=== PATIENT | female | born 1985 ===

== ENCOUNTER 2022-01-07 07:28 | Day surgery (SDC) | payer OTHER ==
[2022-01-07] VITALS (11 sets, daily range): BP systolic 79–121; BP diastolic 40–78
[~2022-01-07] VITALS: Ht 154.9 cm; Wt 68.0 kg
--- NOTE | 2022-01-07 07:50 | ED General ---
General Stated Complaint: VAGINAL BLEEDING History of Present Illness Date Seen by Provider: Jan 07, 2022 Time Seen by Provider: 07:40 Initial Comments Patient is a 36-year-old female who presents to the emergency room with a chief complaint of heavy vaginal bleeding over the course of the last few days. She had a miscarriage about 3 months ago, that was her first . She states she has never quite stopped bleeding. The bleeding has waxed and waned but has never been quite as severe as the last couple of days. She went to [facility] clinic yesterday and did have some ibuprofen. She was set up for an outpatient [facility] appointment for January 14. Currently rates her cramping at about a "4". No burning with urination or increased urinary frequency. She has not been taking anything onig-sjn-tiwhtji for the pain or bleeding. No allergies to medications. She takes no daily medications. Has had no prior surgeries. She does feel quite lightheaded, weak and dizzy this morning. Patient reports that she did not have repeat blood work or an ultrasound done after her miscarriage Use of Video Heat Seal Operator to facilitate HPI and exam Timing/Duration: Other (3 months) Severity: Moderate Associated Systoms: Nausea/Vomiting, Weakness Allergies and Home Medications Allergies Coded Allergies: No Known Drug Allergies (Unverified , 01/07/22) Patient Home Medication List Home Medication List Reviewed: Yes No Active Prescriptions or Reported Meds Review of Systems Review of Systems Constitutional: see HPI EENTM: no symptoms reported Respiratory: no symptoms reported Cardiovascular: no symptoms reported Gastrointestinal: abdominal pain Genitourinary: other (vaginal bleeding) Musculoskeletal: no symptoms reported Skin: no symptoms reported Psychiatric/Neurological: Other (light headed dizzy) All Other Systems Reviewed Negative Unless Noted: Yes Physical Exam Vital Signs Vital Signs - First Documented 01/07/22 07:38 Temp 36.0 Pulse 83 Resp 16 B/P (MAP) 116/76 (89) Pulse Ox 100 O2 Delivery Room Air Capillary Refill : Height, Weight, BMI Height: '" Weight: lbs. oz. kg; BMI Method: General Appearance: No Apparent Distress, WD/WN Eyes: Bilateral Eye Conjunctivae Pale HEENT: PERRL/EOMI Neck: Normal Inspection Respiratory: Lungs Clear, Normal Breath Sounds, No Accessory Muscle Use, No Respiratory Distress Cardiovascular: Regular Rate, Rhythm (tachy 96), Normal Peripheral Pulses Gastrointestinal: Soft, Tenderness Extremity: Normal Capillary Refill, Normal Inspection, Normal Range of Motion, Non Tender, No Calf Tenderness Neurologic/Psychiatric: Alert, Oriented x3, No Motor/Sensory Deficits, Normal Mood/Affect, handcrew foreman II-XII Norm as Tested Progress/Results/Core Measures Suspected Sepsis SIRS Temperature: Pulse: Respiratory Rate: Laboratory Tests 01/07/22 07:57: White Blood Count 15.6H Blood Pressure / Mean: Laboratory Tests 01/07/22 07:57: Creatinine 0.74, Platelet Count 363 Results/Orders Lab Results Laboratory Tests Test 01/07/22 07:57 Range/Units White Blood Count 15.6 H 4.3-11.0 10^3/uL Red Blood Count 3.54 L 3.80-5.11 10^6/uL Hemoglobin 10.5 L 11.5-16.0 g/dL Hematocrit 32 L 35-52 % Mean Corpuscular Volume 91 80-99 fL Mean Corpuscular Hemoglobin 30 25-34 pg Mean Corpuscular Hemoglobin Concent 33 32-36 g/dL Red Cell Distribution Width 12.6 10.0-14.5 % Platelet Count 363 130-400 10^3/uL Mean Platelet Volume 9.3 9.0-12.2 fL Immature Granulocyte % (Auto) 1 % Neutrophils (%) (Auto) 71 42-75 % Lymphocytes (%) (Auto) 21 12-44 % Monocytes (%) (Auto) 5 0-12 % Eosinophils (%) (Auto) 2 0-10 % Basophils (%) (Auto) 0 0-10 % Neutrophils # (Auto) 11.1 H 1.8-7.8 10^3/uL Lymphocytes # (Auto) 3.3 1.0-4.0 10^3/uL Monocytes # (Auto) 0.8 0.0-1.0 10^3/uL Eosinophils # (Auto) 0.2 0.0-0.3 10^3/uL Basophils # (Auto) 0.0 0.0-0.1 10^3/uL Immature Granulocyte # (Auto) 0.1 0.0-0.1 10^3/uL Neutrophils % (Manual) 72 % Lymphocytes % (Manual) 23 % Monocytes % (Manual) 5 % Clumped Platelets OCCASIONAL Sodium Level 135 135-145 MMOL/L Potassium Level 4.6 3.6-5.0 MMOL/L Chloride Level 106 98-107 MMOL/L Carbon Dioxide Level 20 L 21-32 MMOL/L Anion Gap 9 5-14 MMOL/L Blood Urea Nitrogen 12 7-18 MG/DL Creatinine 0.74 0.60-1.30 MG/DL Estimat Glomerular Filtration Rate 107 BUN/Creatinine Ratio 16 Glucose Level 121 H 70-105 MG/DL Calcium Level 8.7 8.5-10.1 MG/DL Serum Test, Qualitative NEGATIVE NEGATIVE My Orders Orders - LENNY OBREGON MD Ed Iv/Invasive Line Start (01/07/22 07:54) Cbc With Automated Diff (01/07/22 07:54) Basic Metabolic Panel (01/07/22 07:54) Abo Rh Type (01/07/22 07:54) Hcg,Qualitative Serum (01/07/22 07:54) Ns Iv 1000 Ml (Sodium Chloride 0.9%) (01/07/22 08:00) Ondansetron Injection (Zofran Injectio (01/07/22 08:00) Manual Differential (01/07/22 07:57) Us Non Ob Pelvis Comp/Transvag (01/07/22 08:33) Ketorolac Injection (Toradol Injection) (01/07/22 08:45) Medications Given in ED Vital Signs/I&O 01/07/22 01/07/22 07:38 13:45 Temp 36.0 Pulse 83 79 Resp 16 16 B/P (MAP) 116/76 (89) 108/72 Pulse Ox 100 100 O2 Delivery Room Air Room Air Capillary Refill : Progress Note #1: Time: 11:23 Progress Note Discussed with Dr Jaimes. Would like to know what the patient wants to do. Progress Note #2: Time: 12:41 Progress Note I spoke with the patient with the use of the video head still operator, she states that her pain is better although she still does have "a little" pain., she did receive some Toradol. She would like to stay and have a D&C. Vital signs remained stable. Exam shows mild tenderness in the suprapubic region. SHe does state the bleeding is "bright red". % pads soaked this morning, SHe had just put on a new one. HGB stable at 10.5. Progress Note #3: Time: 12:[address] Jaimes in the ED to see the patient Diagnostic Imaging Comments [facility] [place], [place] NAME: [facility] REC#: [id number] PT STATUS: REG ER : 1985 PHYSICIAN: LENYN OBREGON MD ADMIT DATE: 01/07/22/ER Draft Date of Exam:01/07/22 US NON OB PELVIS COMP/TRANSVAG PROCEDURE: US Non-ob pelvis comp/trans. TECHNIQUE: Multiple realtime grayscale images were obtained of the pelvis in various projections endovaginally. Transabdominal imaging was also performed. INDICATION: Pain and heavy bleeding, patient is three month post spontaneous . A hypervascular heterogeneous soft tissue like structure along the endocervical canal and lower uterine segment measures 4.5 x 3.5 x 4.4 cm. Vascularized retained products of conception could not be excluded given the history. The mid to distal uterine endometrium appeared normal. No endometrial free fluid. The right ovary contains a 3.7 cm long axis cyst, the left ovary normal. There is no adnexal torsion. IMPRESSION: Central lower uterine segment and cervical heterogeneous Hypervascularized mass effect measured maximal 4.5 x 4.4 cm and is suspicious for an area of vascularized retained products. This patient has a simple appearing right ovarian cyst with no pelvic free fluid or adnexal torsion. Nurse was notified of these suspicious findings prior to this dictation. Dictated on workstation # [id number] Dict: 01/07/2250 Trans: 01/07/[address] [facility] [id number] Interpreted by: EDER DOW Electronically signed by: Departure Communication (Admissions) Time/Spoke to Admitting Phy: 11:[address] Jaimes Impression Primary Impression: Retained products of conception Disposition: ADMITTED INPATIENT Condition: Stable Admissions Decision to Admit Reason: Admit from ER (General) Decision to Admit/Date: Jan 11, 2022 Time/Decision to Admit Time: 11:30 Departure-Patient Inst. Referrals: NO,LOCAL PHYSICIAN (PCP/Family) Primary Care Physician Scripts No Active Prescriptions or Reported Meds LENNY OBREGON MD Jan 07, 2022 07:50
[2022-01-07] MEDS ORDERED: ONDANSETRON 4 MG/2 ML (SDV) Z0FRAN IVP ONE (08:00)
[2022-01-07] MEDS ORDERED: NS IV 1000 ML 1,000 ML IV SCH (08:00)
[2022-01-07 08:04] LABS: BASOPHILS % (AUTO) 0 % (0-10); EOSINOPHILS # (AUTO) 0.2 10^3/uL (0.0-0.3); EOSINOPHILS % (AUTO) 2 % (0-10); HEMATOCRIT 32 % (35-52); HEMOGLOBIN 10.5 g/dL (11.5-16.0); LYMPHOCYTES # (AUTO) 3.3 10^3/uL (1.0-4.0); LYMPHOCYTES % (AUTO) 21 % (12-44); MEAN CORPUSCULAR HEMOGLOBIN 30 pg (25-34); MEAN CORPUSCULAR HGB CONC 33 g/dL (32-36); MEAN CORPUSCULAR VOLUME 91 fL (80-99); MEAN PLATELET VOLUME 9.3 fL (9.0-12.2); MONOCYTES # (AUTO) 0.8 10^3/uL (0.0-1.0); MONOCYTES % (AUTO) 5 % (0-12); NEUTROPHILS # (AUTO) 11.1 10^3/uL (1.8-7.8); NEUTROPHILS % (AUTO) 71 % (42-75); PLATELET COUNT 363 10^3/uL (130-400); WHITE BLOOD COUNT 15.6 10^3/uL (4.3-11.0)
[2022-01-07 08:12] LABS: POTASSIUM 4.6 MMOL/L (3.6-5.0)
[2022-01-07 08:13] LABS: CALCIUM 8.7 MG/DL (8.5-10.1)
[2022-01-07 08:17] LABS: CREATININE SERUM 0.74 MG/DL (0.60-1.30)
[2022-01-07 08:27] LABS: LYMPHOCYTES % (MANUAL) 23 %; MONOCYTES % (MANUAL) 5 %; NEUTROPHILS % (MANUAL) 72 %; PLATELET CLUMPS OCCASIONAL
[2022-01-07] MEDS ORDERED: KETOROLAC 30 MG/ML VIAL IVP ONE ×3 (08:45→13:45)
--- NOTE | 2022-01-07 09:58 | Diagnostic Imaging Report ---
PROCEDURE: US Non-ob pelvis comp/trans. TECHNIQUE: Multiple realtime grayscale images were obtained of the pelvis in various projections endovaginally. Transabdominal imaging was also performed. INDICATION: Pain and heavy bleeding, patient is three month post spontaneous . A hypervascular heterogeneous soft tissue like structure along the endocervical canal and lower uterine segment measures 4.5 x 3.5 x 4.4 cm. Vascularized retained products of conception could not be excluded given the history. The mid to distal uterine endometrium appeared normal. No endometrial free fluid. The right ovary contains a 3.7 cm long axis cyst, the left ovary normal. There is no adnexal torsion. IMPRESSION: Central lower uterine segment and cervical heterogeneous Hypervascularized mass effect measured maximal 4.5 x 4.4 cm and is suspicious for an area of vascularized retained products. This patient has a simple appearing right ovarian cyst with no pelvic free fluid or adnexal torsion. Nurse was notified of these suspicious findings prior to this dictation. Dictated by: Dictated on workstation # [id number]
--- NOTE | 2022-01-07 13:34 | History & Physical ---
History and Physical Date Seen by Provider: Jan 07, 2022 Time Seen by Provider: 13:30 This patient is a 36-year-old female 3 para 2 1 who presents to the emergency department with heavy bleeding and history of a nonviable in August and September. She had been referred for follow-up to Dr. Mena but she never did follow-up apparently did not return to [facility] where she had her primary care. She presented with heavy bleeding and abdominal pain. Ultrasound shows 4 to 6 cm of residual tissue suspicious for retained products of conception. Through an welder experimental I have interviewed the patient and discussed her history her presentation and treatment options being observation versus D&C she did want to proceed with a D&C so she will be admitted as an outpatient for emergency D&C Patient has no bowel or bladder complaints. She has no other complaints. She reports that she has been bleeding off and on since August but for the last 2 days been very heavy large proximal clots and heavy painful cramps Allergies are none Medications are None Past medical history is negative Patient is not a smoker does not do any drugs Family history is noncontributory HEENT exam is normal Neck is supple no lymphadenopathy no thyromegaly Abdomen is gravid soft nontender nondistended Extremities show no clubbing or cyanosis. There is no Homans' sign. Pelvic exam is pending and will be performed under anesthesia in the operating room Lab work is as follows Laboratory Tests Test 01/07/22 07:57 Range/Units White Blood Count 15.6 H 4.3-11.0 10^3/uL Red Blood Count 3.54 L 3.80-5.11 10^6/uL Hemoglobin 10.5 L 11.5-16.0 g/dL Hematocrit 32 L 35-52 % Mean Corpuscular Volume 91 80-99 fL Mean Corpuscular Hemoglobin 30 25-34 pg Mean Corpuscular Hemoglobin Concent 33 32-36 g/dL Red Cell Distribution Width 12.6 10.0-14.5 % Platelet Count 363 130-400 10^3/uL Mean Platelet Volume 9.3 9.0-12.2 fL Immature Granulocyte % (Auto) 1 % Neutrophils (%) (Auto) 71 42-75 % Lymphocytes (%) (Auto) 21 12-44 % Monocytes (%) (Auto) 5 0-12 % Eosinophils (%) (Auto) 2 0-10 % Basophils (%) (Auto) 0 0-10 % Neutrophils # (Auto) 11.1 H 1.8-7.8 10^3/uL Lymphocytes # (Auto) 3.3 1.0-4.0 10^3/uL Monocytes # (Auto) 0.8 0.0-1.0 10^3/uL Eosinophils # (Auto) 0.2 0.0-0.3 10^3/uL Basophils # (Auto) 0.0 0.0-0.1 10^3/uL Immature Granulocyte # (Auto) 0.1 0.0-0.1 10^3/uL Neutrophils % (Manual) 72 % Lymphocytes % (Manual) 23 % Monocytes % (Manual) 5 % Clumped Platelets OCCASIONAL Sodium Level 135 135-145 MMOL/L Potassium Level 4.6 3.6-5.0 MMOL/L Chloride Level 106 98-107 MMOL/L Carbon Dioxide Level 20 L 21-32 MMOL/L Anion Gap 9 5-14 MMOL/L Blood Urea Nitrogen 12 7-18 MG/DL Creatinine 0.74 0.60-1.30 MG/DL Estimat Glomerular Filtration Rate 107 BUN/Creatinine Ratio 16 Glucose Level 121 H 70-105 MG/DL Calcium Level 8.7 8.5-10.1 MG/DL Serum Test, Qualitative NEGATIVE NEGATIVE Ultrasound report for Dr. Tamez in the ED showed a complex mass with blood flow contained in the uterus. She does have a negative test. Assessment and plan Nonviable as recent as AugustIn September of this year. Apparently she has had no follow-up in regard to the nonviable twin that was diagnosed on ultrasound at that time. She has her care through [facility] and apparently had no follow-up there. She did not follow-up with Dr. Mena as instructed previously. Patient is in the emergency department now bleeding heavily we will proceed with D&C that has been fully discussed with the patient through the video welder experimental. All her questions were answered and follow-up instructions were given Menorrhagia/incomplete AB Allergies and Home Medications Allergies Coded Allergies: No Known Drug Allergies (Unverified , 01/07/22) Patient Home Medication List Home Medication List Reviewed: Yes MIKE PEDERSEN MD Jan 07, 2022 13:34
--- NOTE | 2022-01-07 13:36 | Discharge Inst-Surgical ---
Discharge Inst-Surgical Depart Medication/Instructions New, Converted or Re-Newed RX: Other Consults/Follow Up Orders & Referrals Follow Up Appt: Call to make follow up appt. for patient in 2 weeks With your primary care provider at [facility] Return to the emergency department for heavy bleeding temperature of 101 severe pain Activity: Rest for 24 hours, than as tolerated. May use [id number] Motrin or Aleve for cramps Diet: As tolerated shower or tub bathe as desired. No driving for 24 hours, no alcoholic beverages for 24 hours, and nothing per vagina (no tampons, douching, or intercoarse) for 2 weeks. Patient to return to the clinic as soon as possible for: Temperature greater than 101F, Severe Pain, Foul discharge from incision or vagina, Excessive Bleeding (more than a period). Activity Activity as Tolerated: No Diet Discharge Diet: No Restrictions MIKE PEDERSEN MD Jan 07, 2022 13:36
[2022-01-07] MEDS ORDERED: ONDANSETRON 4 MG/2 ML (SDV) Z0FRAN IVP PRN ×3 (13:45→14:30)
[2022-01-07] MEDS ORDERED: MEPERIDINE (DEMEROL) INJ 100 MG/ML IM ONE ×2 (13:45)
[2022-01-07] MEDS ORDERED: D5 LR IV SOLUTION 1,000 ML IV SCH ×2 (13:45→14:00)
[2022-01-07] MEDS ORDERED: ONDANSETRON 4 MG/2 ML (SDV) Z0FRAN ONE (13:48)
[2022-01-07] MEDS ORDERED: proPOfol 200 MG/20 ML (DIPRIVAN) VIAL IV ONE (13:48)
[2022-01-07] MEDS ORDERED: LIDOCAINE PF 2% 5 ML (XYLOCAINE) VIAL ONE (13:48)
[2022-01-07] MEDS ORDERED: SEVOFLURANE (ULTANE) 15 ML INHAL SOLN ONE ×2 (13:48→14:10)
[2022-01-07] MEDS ORDERED: MIDAZOLAM 2 MG/2 ML (VERSED) VIAL ONE (13:48)
[2022-01-07] MEDS ORDERED: fentaNYL INJ 100 MCG/2 ML AMP ONE (13:48)
[2022-01-07] MEDS ORDERED: ceFAZolin INJECTION 1,000 MG ONE (14:10)
[2022-01-07] MEDS ORDERED: ceFAZolin INJECTION 1,000 MG VIAL IV ONE (14:15)
[2022-01-07] MEDS ORDERED: LACTATED RINGERS 1,000 ML IV PRN (14:15)
--- NOTE | 2022-01-07 14:27 | Anesthesia-General Post-Op ---
General Patient Condition Mental Status/LOC: Same as Preop Cardiovascular: Satisfactory Nausea/Vomiting: Absent Respiratory: Satisfactory Pain: Controlled Complications: Absent Post Op Complications Complications None Follow Up Care/Instructions Patient Instructions None needed. Anesthesia/Patient Condition Patient Condition Patient is doing well, no complaints, stable vital signs, no apparent adverse anesthesia problems. No complications reported per nursing. CLAUDIO FARAH CRNA Jan 07, 2022 14:27
[2022-01-07] MEDS ORDERED: MEPERIDINE (DEMEROL) INJ 50 MG/ML IVP ONE (14:30)
[2022-01-07] MEDS ORDERED: fentaNYL INJ 100 MCG/2 ML AMP IVP ONE (14:30)
[2022-01-07] MEDS ORDERED: morphine INJ 10 MG/ML 1ML (SYR OR VIAL) IVP ONE (14:30)
[2022-01-07] MEDS ORDERED: KETOROLAC 30 MG/ML VIAL ONE (15:07)
--- NOTE | 2022-01-08 01:45 | OPERATIVE REPORT ---
DATE OF SERVICE: 01/07/2022 PREOPERATIVE DIAGNOSES: Menometrorrhagia and incomplete spontaneous miscarriage. POSTOPERATIVE DIAGNOSES: Menometrorrhagia and incomplete spontaneous miscarriage with pathology pending. PROCEDURE: D and C with suction. DESCRIPTION OF PROCEDURE: With the patient in the supine position, under satisfactory general anesthesia, she was repositioned in the dorsal lithotomy position in the Chalo stirrups and then prepped and draped in the usual fashion for vaginal surgery. The urinary bladder was drained with a straight catheter. Weighted speculum was placed in the posterior fornix of the vagina, cervix exposed and grasped anteriorly with single tooth tenaculum. Uterus was sounded to 14 cm with a uterine sound. The cervix was then serially dilated to a #21 Hegar dilator. A #11 curved suction curette was then introduced in the uterine cavity and a large amount of blood clot and debris was evacuated. The endometrial cavity was then sharply curettaged in all 4 quadrants to a good uterine cry. This curved suction curette was reintroduced and all blood clot and debris evacuated from the uterus. Tissue was sent to pathology as uterine contents. The tenaculum was removed. There was minimal bleeding at the cervical os. There was a little bit of bleeding from the tenaculum puncture sites. This was touched with silver nitrate to affect hemostasis. Then, with hemostasis assured, sponge and needle counts were correct. Blood loss between 100 and 200 mL. The patient was uneventfully awakened from her general anesthesia and transferred to the recovery room in stable condition with plans for discharge home PAR. Job ID: [id number] DocumentID: [id number] Dictated Date: 01/07/2022 14:46:39 Production Machine Operator Date: 01/08/2022 01:44:00 Dictated By: MIKE PEDERSEN MD
== END 2022-01-07 16:40 | disposition home or self-care (01) ==
LOC: ER 07:33 → SDC 13:54
PROVIDERS: ATTEND Obstetrics & Gynecology
DX: O03.4 Incomplete spontaneous abortion without complication (principal)
CPT/HCPCS: 36415; 76830; 76856; 80048; 84703; 85007; 85027; 86900; 86901

== ENCOUNTER 2022-12-22 13:55 | Observation (INO) | payer OTHER ==
[2022-12-22] VITALS (14 sets, daily range): BP systolic 80–138; BP diastolic 42–76
[~2022-12-22] VITALS: Ht 150 cm; Wt 73.4 kg
[2022-12-22] MEDS ORDERED: NS IV 1000 ML 1,000 ML IV STA (14:16)
[2022-12-22 14:26] LABS: BASOPHILS % (AUTO) 0 % (0-10); EOSINOPHILS # (AUTO) 0.3 10^3/uL (0.0-0.3); EOSINOPHILS % (AUTO) 3 % (0-10); HEMATOCRIT 30 % (35-52); HEMOGLOBIN 9.7 g/dL (11.5-16.0); LYMPHOCYTES # (AUTO) 3.6 10^3/uL (1.0-4.0); LYMPHOCYTES % (AUTO) 33 % (12-44); MEAN CORPUSCULAR HEMOGLOBIN 31 pg (25-34); MEAN CORPUSCULAR HGB CONC 33 g/dL (32-36); MEAN CORPUSCULAR VOLUME 96 fL (80-99); MEAN PLATELET VOLUME 9.6 fL (9.0-12.2); MONOCYTES # (AUTO) 0.7 10^3/uL (0.0-1.0); MONOCYTES % (AUTO) 6 % (0-12); NEUTROPHILS # (AUTO) 6.2 10^3/uL (1.8-7.8); NEUTROPHILS % (AUTO) 57 % (42-75); PLATELET COUNT 339 10^3/uL (130-400); WHITE BLOOD COUNT 10.9 10^3/uL (4.3-11.0)
--- NOTE | 2022-12-22 14:26 | ED GU-Female ---
General Chief Complaint: - Reproductive Stated Complaint: VAG BLEEDING Nursing Triage Note: PT ARRIVED POV FROM [facility] WITH CC OF ABNORMAL VAGINAL BLEEDING, INCREASE IN WEAKNESS, AND LOWER ABD PAIN AND SPINAL PAIN. PT STATES THAT BLEEDING STARTED ON Dec. Source: patient Exam Limitations: no limitations History of Present Illness Date Seen by Provider: Dec 22, 2022 Time Seen by Provider: 14:24 Initial Comments Patient is a 37-year-old female who presents to ED for abnormal vaginal bleeding. Patient was sent over from [facility] concerning for miscarriage with severe anemia. Patient started having lower abdominal cramping and low back pain with heavy vaginal bleeding on the . She states she is going through a pad every 15 minutes. Patient reports nausea without any vomiting or diarrhea. She is G4, P2. Last menstrual cycle November 13. She was found to have an elevated beta quant level. She had a ultrasound which showed concern for gestational sac. She is not on any type of blood thinner use. She does report frequent urination without any vaginal discharge. She reports chills fatigue without any known fever. She denies chest pain, shortness of breath, cough, headache, dizziness. speaking robotype operator was used. Allergies and Home Medications Allergies Coded Allergies: No Known Drug Allergies (Unverified , 01/07/22) Patient Home Medication List Home Medication List Reviewed: Yes No Active Prescriptions or Reported Meds Review of Systems Review of Systems Constitutional: No chills, No diaphoresis, No malaise, No weakness EENTM: No ear pain, No blurred vision, No double vision Respiratory: No cough, No dyspnea on exertion Cardiovascular: No chest pain Gastrointestinal: abdominal pain; No diarrhea; nausea; No vomiting Genitourinary: denies see HPI, denies burning, denies discharge; frequency, pain Musculoskeletal: back pain; No joint pain Skin: No change in color, No change in hair/nails All Other Systemes Reviewed Negative Unless Noted: Yes Past Vagljsy-Zugvgk-Uuushc Hx Patient Social History Tobacco Use?: No Substance use?: No Alcohol Use?: No Past Medical History Currently Using CPAP: No Currently Using BIPAP: No Physical Exam Vital Signs Vital Signs - First Documented 12/22/22 14:00 Temp 37.2 Pulse 106 B/P (MAP) 144/78 (100) Pulse Ox 100 O2 Delivery Room Air Capillary Refill : Height, Weight, BMI Height: '" Weight: lbs. oz. kg; 32.00 BMI Method: General Appearance: WD/WN, no apparent distress HEENT: PERRL/EOMI, normal ENT inspection, TMs normal, pharynx normal Neck: non-tender, full range of motion, supple Cardiovascular: regular rate, rhythm, no edema, no gallop, no JVD Respiratory: chest non-tender, lungs clear, normal breath sounds, no respiratory distress Gastrointestinal: normal bowel sounds, non tender, soft, no organomegaly Back: normal inspection, no CVA tenderness Extremities: normal range of motion, non-tender, normal inspection, no pedal edema Neurologic/Psychiatric: electrotype caster II-XII nml as tested, alert Skin: normal color, warm/dry Progress/Results/Core Measures Suspected Sepsis SIRS Temperature: Pulse: 106 Respiratory Rate: Laboratory Tests 12/22/22 14:20: White Blood Count 10.9 Blood Pressure 144 /78 Mean: 100 Laboratory Tests 12/22/22 14:20: Creatinine 0.69, INR Comment 1.0, Platelet Count 339, Total Bilirubin 0.1 Results/Orders Lab Results Laboratory Tests Test 12/22/22 14:20 12/22/22 15:29 Range/Units White Blood Count 10.9 4.3-11.0 10^3/uL Red Blood Count 3.11 L 3.80-5.11 10^6/uL Hemoglobin 9.7 L 8.1 L 11.5-16.0 g/dL Hematocrit 30 L 25 L 35-52 % Mean Corpuscular Volume 96 80-99 fL Mean Corpuscular Hemoglobin 31 25-34 pg Mean Corpuscular Hemoglobin Concent 33 32-36 g/dL Red Cell Distribution Width 13.6 10.0-14.5 % Platelet Count 339 130-400 10^3/uL Mean Platelet Volume 9.6 9.0-12.2 fL Immature Granulocyte % (Auto) 1 % Neutrophils (%) (Auto) 57 42-75 % Lymphocytes (%) (Auto) 33 12-44 % Monocytes (%) (Auto) 6 0-12 % Eosinophils (%) (Auto) 3 0-10 % Basophils (%) (Auto) 0 0-10 % Neutrophils # (Auto) 6.2 1.8-7.8 10^3/uL Lymphocytes # (Auto) 3.6 1.0-4.0 10^3/uL Monocytes # (Auto) 0.7 0.0-1.0 10^3/uL Eosinophils # (Auto) 0.3 0.0-0.3 10^3/uL Basophils # (Auto) 0.0 0.0-0.1 10^3/uL Immature Granulocyte # (Auto) 0.1 0.0-0.1 10^3/uL Prothrombin Time 13.4 12.2-14.7 SEC INR Comment 1.0 0.8-1.4 Activated Partial Thromboplast Time 29 24-35 SEC Sodium Level 136 135-145 MMOL/L Potassium Level 3.7 3.6-5.0 MMOL/L Chloride Level 109 H 98-107 MMOL/L Carbon Dioxide Level 21 21-32 MMOL/L Anion Gap 6 5-14 MMOL/L Blood Urea Nitrogen 6 L 7-18 MG/DL Creatinine 0.69 0.60-1.30 MG/DL Estimat Glomerular Filtration Rate 114 BUN/Creatinine Ratio 9 Glucose Level 100 70-105 MG/DL Calcium Level 8.2 L 8.5-10.1 MG/DL Corrected Calcium 8.4 L 8.5-10.1 MG/DL Magnesium Level 2.2 1.6-2.4 MG/DL Total Bilirubin 0.1 0.1-1.0 MG/DL Aspartate Amino Transf (AST/SGOT) 24 5-34 U/L Alanine Aminotransferase (ALT/SGPT) 57 H 0-55 U/L Alkaline Phosphatase 76 40-136 U/L Total Protein 6.7 6.4-8.2 GM/DL Albumin 3.7 3.2-4.5 GM/DL Lipase 37 8-78 U/L Human Chorionic Gonadotropin, Quant 2696 H <5 MIU/ML My Orders Orders - VALERIA RODRIGUEZ Cbc And Automated Diff (12/22/22 14:16) Comprehensive Metabolic Panel (12/22/22 14:16) Lipase (12/22/22 14:16) Magnesium (12/22/22 14:16) Type And Screen (12/22/22 14:16) Wet Prep (12/22/22 14:16) Neis Pop Dna Urine Test (12/22/22 14:16) Chlamydia Trachomatis Urine (12/22/22 14:16) Ns Iv 1000 Ml (Ns Iv 1000 Ml) (12/22/22 14:16) Partial Thromboplastin Time (12/22/22 14:16) Protime With Inr (12/22/22 14:16) Hcg,Quantitative (12/22/22 14:16) Hemoglobin And Hematocrit (12/22/22 15:26) Red Cells Leukocytes Reduced (12/22/22 15:47) Nothing By Mouth (12/22/22 Dinner) Ua Culture If Indicated (12/22/22 16:19) Vital Signs/I&O 12/22/22 14:00 Temp 37.2 Pulse 106 B/P (MAP) 144/78 (100) Pulse Ox 100 O2 Delivery Room Air Capillary Refill : Blood Pressure Mean: 100 ECG Comment Atrial pacemaker, ventricular pacemaker, 80 bpm, QRS duration 174 MS, QTc 472 MS. Departure Communication (PCP) . Last menstrual cycle eighth of last month. Patient Here with heavy vaginal bleeding since of . Outpatient beta quant showed levels over 3000. Had an ultrasound which did not show any definite intrauterine . 1.6 cm thick-walled right adnexal lesion favored to be within the right ovary suggesting of a hemorrhagic corpus luteum. Ectopic is felt much less likely. Pelvic exam, beta quant, CBC, CMP Hemoglobin at the clinic today was 8.5. Decreased from 12.5 3 days ago. Pelvic exam showed large amount of bright red blood and clots. Urinalysis pending. CBC showed white blood count normal with a hemoglobin 9.7. Did rechecking hematocrit and hemoglobin with hemoglobin 8.1. Consulted Dr. Mena DIRECTOR OF NURSES REGISTRY who recommend D&C at this time and will evaluate patient here in the ER and take to the OR. Family agree with this plan of action. Holding 2 units of blood at this time. Patient was started on a liter of fluid. Patient vital signs stable. Impression Primary Impression: Miscarriage Disposition: 30 STILL A PATIENT Condition: Stable Departure-Patient Inst. Referrals: [facility] (PCP/Family) Primary Care Physician Scripts No Active Prescriptions or Reported Meds VALERIA RODRIGUEZ Dec 22, 2022 14:26
[2022-12-22 14:38] LABS: ALBUMIN 3.7 GM/DL (3.2-4.5); POTASSIUM 3.7 MMOL/L (3.6-5.0)
[2022-12-22 14:40] LABS: CALCIUM 8.2 MG/DL (8.5-10.1)
[2022-12-22 14:41] LABS: TOTAL PROTEIN 6.7 GM/DL (6.4-8.2)
[2022-12-22 14:43] LABS: BILIRUBIN,TOTAL 0.1 MG/DL (0.1-1.0)
[2022-12-22 14:45] LABS: CREATININE SERUM 0.69 MG/DL (0.60-1.30)
[2022-12-22 14:47] LABS: MAGNESIUM 2.2 MG/DL (1.6-2.4)
[2022-12-22 14:49] LABS: PROTHROMBIN TIME PATIENT 13.4 SEC (12.2-14.7)
[2022-12-22 15:34] LABS: HEMOGLOBIN 8.1 g/dL (11.5-16.0)
[2022-12-22] MEDS ORDERED: LACTATED RINGERS 1,000 ML 1,000 ML IV PRN (16:00)
[2022-12-22] MEDS ORDERED: fentaNYL INJECTION 100 MCG/2 ML VIAL ONE ×2 (16:11→17:47)
[2022-12-22] MEDS ORDERED: proPOfol INJECTION 200 MG/20 ML VIAL IV ONE (16:11)
[2022-12-22] MEDS ORDERED: SUCCINYLCHOLINE INJ 20 MG/1 ML 10 ML VIAL ONE (16:11)
[2022-12-22] MEDS ORDERED: MIDAZOLAM INJ 2 MG/2 ML VIAL ONE (16:11)
--- NOTE | 2022-12-22 16:27 | History & Physical-Surgical ---
HPO-Surgical History of Present Illness Chief Complaint: PT ARRIVED POV FROM [facility] WITH CC OF ABNORMAL VAGINAL BLEEDING, INCREASE IN WEAKNESS, AND LOWER ABD PAIN AND SPINAL PAIN. PT STATES THAT BLEEDING STARTED ON Dec. Diagnosis/Surgical Indication: Incomplete ab with active hemorrhage Date of Surgery: Dec 22, 2022 Allergies and Home Medications Allergies Coded Allergies: No Known Drug Allergies (Unverified , 01/07/22) Patient Home Medication List Home Medication List Reviewed: Yes No Active Prescriptions or Reported Meds Past Gwkikdc-Uujjjj-Wjshxg Hx Patient Social History Alcohol Use?: No Respiratory Currently Using CPAP: No Currently Using BIPAP: No Exam Vital Signs Vital Signs 12/22/22 14:00 Temp 37.2 Pulse 106 B/P (MAP) 144/78 (100) Pulse Ox 100 O2 Delivery Room Air Capillary Refill : Labs Laboratory Tests Test 12/22/22 14:20 12/22/22 15:29 Range/Units White Blood Count 10.9 4.3-11.0 10^3/uL Red Blood Count 3.11 L 3.80-5.11 10^6/uL Hemoglobin 9.7 L 8.1 L 11.5-16.0 g/dL Hematocrit 30 L 25 L 35-52 % Mean Corpuscular Volume 96 80-99 fL Mean Corpuscular Hemoglobin 31 25-34 pg Mean Corpuscular Hemoglobin Concent 33 32-36 g/dL Red Cell Distribution Width 13.6 10.0-14.5 % Platelet Count 339 130-400 10^3/uL Mean Platelet Volume 9.6 9.0-12.2 fL Immature Granulocyte % (Auto) 1 % Neutrophils (%) (Auto) 57 42-75 % Lymphocytes (%) (Auto) 33 12-44 % Monocytes (%) (Auto) 6 0-12 % Eosinophils (%) (Auto) 3 0-10 % Basophils (%) (Auto) 0 0-10 % Neutrophils # (Auto) 6.2 1.8-7.8 10^3/uL Lymphocytes # (Auto) 3.6 1.0-4.0 10^3/uL Monocytes # (Auto) 0.7 0.0-1.0 10^3/uL Eosinophils # (Auto) 0.3 0.0-0.3 10^3/uL Basophils # (Auto) 0.0 0.0-0.1 10^3/uL Immature Granulocyte # (Auto) 0.1 0.0-0.1 10^3/uL Prothrombin Time 13.4 12.2-14.7 SEC INR Comment 1.0 0.8-1.4 Activated Partial Thromboplast Time 29 24-35 SEC Sodium Level 136 135-145 MMOL/L Potassium Level 3.7 3.6-5.0 MMOL/L Chloride Level 109 H 98-107 MMOL/L Carbon Dioxide Level 21 21-32 MMOL/L Anion Gap 6 5-14 MMOL/L Blood Urea Nitrogen 6 L 7-18 MG/DL Creatinine 0.69 0.60-1.30 MG/DL Estimat Glomerular Filtration Rate 114 BUN/Creatinine Ratio 9 Glucose Level 100 70-105 MG/DL Calcium Level 8.2 L 8.5-10.1 MG/DL Corrected Calcium 8.4 L 8.5-10.1 MG/DL Magnesium Level 2.2 1.6-2.4 MG/DL Total Bilirubin 0.1 0.1-1.0 MG/DL Aspartate Amino Transf (AST/SGOT) 24 5-34 U/L Alanine Aminotransferase (ALT/SGPT) 57 H 0-55 U/L Alkaline Phosphatase 76 40-136 U/L Total Protein 6.7 6.4-8.2 GM/DL Albumin 3.7 3.2-4.5 GM/DL Lipase 37 8-78 U/L Human Chorionic Gonadotropin, Quant 2696 H <5 MIU/ML General Appearance: Alert, Oriented X3, Cooperative, Mild Distress HEENT: Atraumatic, PERRLA Cardiovascular: Regular Rate Psych/Mental Status: Mental Status NL Assessment/Plan Assessment and Plan Diagnosis: Incomplete ab with active hemorrhage Acute blood loss anemia of 8.1 P: Suction D and C Transfuse 2 units PRBC Will consider dc this evening vs tomorrow morning. Admission Diagnosis Admission Status: Observation DEE TIRADO Dec 22, 2022 16:26
--- NOTE | 2022-12-22 16:28 | Discharge Inst-Women's Service ---
Discharge Inst-Women's Serv Depart Medication/Instructions New, Converted or Re-Newed RX: Transmitted to Pharmacy Problems Reviewed?: Yes Consults/Follow Up Additional Follow Up: Yes Orders/Referrals Dr. Tirado office in 2 weeks Activity Activity: Activity as Tolerated Driving Instructions: No Driving for 1 Week NO SMOKING: NO SMOKING Nothing Inside Vagina: No Douching, No [place], No Tampons Diet Discharge Diet: No Restrictions Symptoms to Report to : Bleeding Excessive, Pain Increased, Fever Over 101 Degrees F, Vaginal Bleeding Increase, Questions/Concerns For Any Problems or Questions: Contact Your Physician DEE TIRADO DO Dec 22, 2022 16:28
[2022-12-22] MEDS ORDERED: ONDANSETRON INJECTION 4 MG/2 ML (SDV) IVP PRN ×2 (16:30→17:45)
[2022-12-22] MEDS ORDERED: D5 LR 1,000 ML IV SOLN 1,000 ML IV SCH (16:30)
[2022-12-22] MEDS ORDERED: NS IV 500 ML 500 ML IV SCH (16:30)
[2022-12-22] MEDS ORDERED: KETOROLAC INJ 30 MG/ML VIAL IVP ONE (16:30)
[2022-12-22] MEDS ORDERED: HYDROcodone/ACETAMINOPHEN 5 MG/325 MG TABLET PO PRN (16:30)
[2022-12-22] MEDS ORDERED: IBUP-1773 PO (16:31)
[2022-12-22] MEDS ORDERED: ACHD5005 PO (16:31)
--- NOTE | 2022-12-22 17:36 | Anesthesia-General Post-Op ---
General Patient Condition Mental Status/LOC: Same as Preop Cardiovascular: Satisfactory Nausea/Vomiting: Absent Respiratory: Satisfactory Pain: Controlled Complications: Absent Post Op Complications Complications None Follow Up Care/Instructions Patient Instructions None needed. Anesthesia/Patient Condition Patient Condition Patient is doing well, no complaints, stable vital signs, no apparent adverse anesthesia problems. No complications reported per nursing. DAV CONROY CRNA Dec 22, 2022 17:36
[2022-12-22] MEDS ORDERED: morphine INJ 10 MG/ML 1ML (SYR OR VIAL) IVP ONE (17:45)
[2022-12-22] MEDS ORDERED: fentaNYL INJECTION 100 MCG/2 ML VIAL IVP ONE (17:45)
[2022-12-22] MEDS ORDERED: ONDANSETRON INJECTION 4 MG/2 ML (SDV) ONE (17:51)
[2022-12-22] MEDS ORDERED: LIDOCAINE PF 2% 5 ML VIAL ONE (17:51)
[2022-12-22] MEDS ORDERED: SEVOFLURANE (ULTANE) 15 ML INHAL SOLN ONE (17:51)
[2022-12-22] MEDS ORDERED: dexAMETHasone INJ 10 MG/ML 1 ML VIAL ONE (17:51)
[2022-12-22] MEDS ORDERED: KETOROLAC INJ 30 MG/ML VIAL ONE (17:51)
[2022-12-22] MEDS ORDERED: ACETAMINOPHEN 500 MG TABLET PO PRN (19:15)
[2022-12-22] MEDS ORDERED: ACETAMINOPHEN 500 MG TABLET ONE (19:23)
[2022-12-23 00:31] VITALS: BP 103/54
--- NOTE | 2022-12-23 00:32 | OPERATIVE REPORT ---
DATE OF SERVICE: 12/22/2022 PREOPERATIVE DIAGNOSES: 1. A 37-year-old female with incomplete . 2. Acute blood loss anemia. POSTOPERATIVE DIAGNOSES: 1. A 37-year-old female with incomplete . 2. Acute blood loss anemia. PROCEDURE: Suction D and C. SURGEON: Dee Tirado DO ANESTHESIA: LMA general. EBL: 50 mL URINE OUTPUT: 200 mL clear at the end of the procedure. FLUIDS: 800 mL lactated Ringer's solution. FINDINGS: Grossly normal-appearing external female genitalia. Moderate amount of products of conception that were retained. SPECIMEN SENT: Products of conception. INDICATIONS FOR PROCEDURE: This patient was urgently taken to the emergency department after being found to be hypotensive and lethargic and lightheaded at home. She had a diagnosis of an early with an hCG level of over 3000; however, had that since fallen once she got to the emergency department to 2600. She also had a hemoglobin a few days prior of 12 and this was significantly changed in the emergency room to 8.1. Due to a significant amount of bleeding that she was having in the emergency department, I discussed with the patient and her family proceeding with suction D and C to retrieve the remaining products of conception. Risks of procedure were discussed with the patient in detail. After all of her questions were answered with family present, consent was obtained, the patient was taken to the operating room. OPERATIVE REPORT IN DETAIL: Once in the operating room, general anesthesia was found to be adequate. She was placed in dorsal lithotomy position, prepped and draped in normal sterile fashion. A timeout was performed. Anesthesia was tested. I then placed a weighted speculum into the patient's vagina. Right angle retractor was utilized. Cervix was grasped at 12 o'clock position using a long Allis clamp. I then gently sound uterine cavity, depth was found to be approximately 9 cm. I selected a #10 Bradley suction curette and slowly advanced this into the uterus as there was already significant dilation of the cervix, it easily passes through the cervix. I then activated Tip suction to maximum suction pressure of 70 mmHg, at which point I rotated this Tip suction device on several passes collecting the remaining products of conception until little to no tissue was collected through the suction. I then performed a gentle curettage using a medium size endometrial curette and then make one final pass with the Tip suction curette after which there was little to no bleeding noted from the cervix after which all the instruments were removed from the patient's vagina. The patient tolerated the procedure well and was taken to recovery in stable condition. Lap and sponge counts were correct at the end of the procedure. Instrument counts correct as well. The bladder was emptied via straight catheterization at the end of the procedure. Job ID: [id number] DocumentID: [id number] Dictated Date: 12/22/2022 17:21:45 Dean Date: 12/23/2022 00:30:00 Dictated By: DEE TIRADO DO
[2022-12-23 04:07] VITALS: BP 96/53
[2022-12-23 06:08] LABS: BASOPHILS % (AUTO) 0 % (0-10); EOSINOPHILS # (AUTO) 0.4 10^3/uL (0.0-0.3); EOSINOPHILS % (AUTO) 4 % (0-10); HEMATOCRIT 28 % (35-52); HEMOGLOBIN 9.2 g/dL (11.5-16.0); LYMPHOCYTES # (AUTO) 2.9 10^3/uL (1.0-4.0); LYMPHOCYTES % (AUTO) 29 % (12-44); MEAN CORPUSCULAR HEMOGLOBIN 30 pg (25-34); MEAN CORPUSCULAR HGB CONC 34 g/dL (32-36); MEAN CORPUSCULAR VOLUME 91 fL (80-99); MONOCYTES # (AUTO) 0.6 10^3/uL (0.0-1.0); MONOCYTES % (AUTO) 6 % (0-12); NEUTROPHILS # (AUTO) 6.1 10^3/uL (1.8-7.8); NEUTROPHILS % (AUTO) 61 % (42-75); PLATELET COUNT 247 10^3/uL (130-400)
[2022-12-23 10:30] VITALS: BP 97/55
--- NOTE | 2022-12-23 14:40 | Anesthesia-General Post-Op ---
General Patient Condition Mental Status/LOC: Same as Preop Cardiovascular: Satisfactory Nausea/Vomiting: Absent Respiratory: Satisfactory Pain: Controlled Complications: Absent Post Op Complications Complications None Follow Up Care/Instructions Patient Instructions None needed. Anesthesia/Patient Condition Patient Condition Patient is doing well, no complaints, stable vital signs, no apparent adverse anesthesia problems. No complications reported per nursing. NATALIIA CORRAL CRNA Dec 23, 2022 14:40
== END 2022-12-23 07:08 | disposition home or self-care (01) ==
LOC: EDUNIT# 13:55 → ER 13:59 → SDC 16:31 → WS 18:35
PROVIDERS: ADMIT Obstetrics & Gynecology; ATTEND Obstetrics & Gynecology
DX: O03.4 Incomplete spontaneous abortion without complication (principal); D62 Acute posthemorrhagic anemia
CPT/HCPCS: 36430; 59812; 80053; 83690; 83735; 84702; 85014; 85018; 85025 ×2; 85610; 85730; 86850; 86900; 86901; 86920; 96360; 96361 ×2; 96375; 99284; G0378; P9016; 36415